=== PATIENT | female | born 1980 | race Caucasian/White ===

== ENCOUNTER 2016-12-17 00:48 | Emergency (ER) | payer MEDICAID ==
[~2016-12-17] VITALS: Ht 165.1 cm; Wt 62.0 kg
[2016-12-17 00:51] VITALS: Ht 165.1 cm; Wt 62.0 kg
--- NOTE | 2016-12-17 01:16 | ERA ---
ER Documentation Chief Complaint Date/Time DATE: 12/17/16 TIME: 01:15 Chief Complaint high blood pressure HPI The patient is a 35-year-old female, presenting to the ER because of high blood pressure. 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 She had her blood pressure taken, it was high. She is under a lot of stress. Therefore she was asked to go to the hospital. She denies any symptoms, denies headache, neck pain, chest pain, abdominal pain, vomiting, dysuria, diarrhea, constipation. She does not smoke or drink Past medical/surgical history: None ROS All systems reviewed and are negative except as per history of present illness. Allergies Allergies: Coded Allergies: No Known Allergy (Unverified , 12/17/16) PMhx/Soc Medical and Surgical Hx: pt denies Medical Hx, pt denies Surgical Hx Hx Alcohol Use: No Hx Substance Use: No Hx Tobacco Use: No Smoking Status: Never smoker Physical Exam Vitals Vital Signs Date Time Temp Pulse Resp B/P Pulse Ox O2 Delivery O2 Flow Rate FiO2 12/17/16 01:30 64 15 131/83 100 Room Air 12/17/16 00:51 98.9 84 17 174/100 100 Physical Exam Const: No acute distress. Head: Atraumatic. Eyes: Normal Conjunctiva. ENT: Normal External Ears, Nose and Mouth. Neck: Full range of motion. No meningismus. Resp: Clear to auscultation bilaterally. Cardio: Regular rate and rhythm, no murmurs. Abd: Soft, non distended, normal bowel sounds, non tender. Skin: No petechiae or rashes. Back: No midline or flank tenderness. Ext: No cyanosis, or edema. Neur: Awake and alert. No focal deficit Psych: Normal Mood and Affect. Procedures/MDM MDM: The patient is a 35-year-old female, presenting with elevated blood pressure. She denies any symptom, he is stable for outpatient follow-up Departure Diagnosis: Primary Impression: Hypertension Condition: Good Comments I discussed the findings with the patient. I advised the patient to follow-up with the primary physician in about 1-2 days to recheck her blood pressure, sooner if needed and return if any concern. SURYA SALAZAR MD Dec 17, 2016 01:16
[2016-12-17 01:30] VITALS: BP 131/83; PULSE 64; RESP 15
== END 2016-12-17 01:54 | disposition home or self-care (01) ==
LOC: E/R 00:48
DX: I10 Essential (primary) hypertension (principal)
CPT/HCPCS: 99282

== ENCOUNTER 2017-11-11 14:00 | Emergency (ER) | END 2017-11-11 14:26 | disposition home or self-care (01) ==

== ENCOUNTER 2018-03-24 00:33 | Emergency (ER) | END 2018-03-24 04:19 | disposition left against medical advice (07) ==

== ENCOUNTER 2018-03-24 09:50 | Emergency (ER) | END 2018-03-24 12:17 | disposition home or self-care (01) ==

== ENCOUNTER 2018-09-04 19:17 | Emergency (ER) | payer OTHER ==
[~2018-09-04] VITALS: Wt 61.4 kg
[~2018-09-04 19:17] MED LIST: BEN25 PO; CLIN300C10 PO; HC30CR25 TOP; IBUP-1542 PO
[2018-09-04 19:19] VITALS: BP 128/77; PULSE 84; RESP 19
[2018-09-04] MEDS ORDERED: KETOROLAC 60 MG INJ IM STA (22:36)
[2018-09-04] MEDS ORDERED: IBUP-1542 PO (23:02)
--- NOTE | 2018-09-05 00:28 | ERD ---
ER Documentation Chief Complaint Chief Complaint bib self, cc: headache x 3 days, HPI 38-year-old female patient with no significant past medical history presents the ED complaining of a headache that started 3 days ago after a head injury. Describes her pain is achy and rates it a 7 out of 10. That she is been taking Excedrin, without relief. Reports her pain is on the frontal region. Patient reports that she was trying to put her laundry up onto the shelf, actually hit her ahead and did not lose consciousness but feels slightly dizzy and with a headache. Denies any fever, chills, nausea, vomiting, diarrhea, neck stiffness. ROS All systems reviewed and are negative except as per history of present illness. Medications Home Meds Active Scripts Ibuprofen* (Motrin*) 600 Mg Tab, 600 MG PO Q6, #30 TAB Prov:THERESA BELTRÁN PA-C 09/04/18 Ibuprofen* (Motrin*) 600 Mg Tab, 600 MG PO Q8 for 5 Days, #15 TAB Prov:ARIEL MORENO MD 03/24/18 Clindamycin Hcl* (Clindamycin Hcl*) 300 Mg Capsule, 300 MG PO TID for 7 Days, CAP Prov:ARIEL MORENO MD 03/24/18 Hydrocortisone* Topical (Hydrocortisone* Topical) 2.5%-28.3 Gm Cream..g., 1 APPLIC TOP BID, #1 TUB Prov:RYAN SPEARS PA-C 11/11/17 Diphenhydramine Hcl* (Benadryl*) 25 Mg Cap, 25 MG PO Q6, #30 CAP Prov:RYAN SPEARS PA-C 11/11/17 Allergies Allergies: Coded Allergies: No Known Allergy (Unverified , 03/24/18) PMhx/Soc Medical and Surgical Hx: pt denies Medical Hx, pt denies Surgical Hx History of Surgery: No Anesthesia Reaction: No Hx Neurological Disorder: No Hx Respiratory Disorders: No Hx Cardiac Disorders: No Hx Psychiatric Problems: No Hx Miscellaneous Medical Probl: No Hx Alcohol Use: No Hx Substance Use: No Hx Tobacco Use: No Smoking Status: Never smoker FmHx Family History: No diabetes, No coronary disease Physical Exam Vitals Vital Signs Date Temp Pulse Resp B/P (MAP) Pulse Ox O2 O2 Flow FiO2 Time Delivery Rate 09/04/18 97.3 84 19 128/77 100 19:19 (94) Physical Exam Const: Pso-tbx-hweuykvwv, well-nourished. In no acute distress. Head: Atraumatic, normocephalic no hematoma. No floyd sign. No raccoon eyes. Eyes: Normal Conjunctiva without injection. No purulent discharge. PERRLA. EOMI ENT: Normal external ear. Ear canal without erythema. Tympanic membrane pearly pineda without effusion or bulging. No hemotympanum. Nasal canal clear with normal turbinates. Moist oropharynx without tonsillar exudates. Non-erythematous pharynx. Uvula midline. No drooling. No trismus. Neck: No cervical midline tenderness. Full range of motion. No meningismus. No cervical lymphadenopathy. No JVD. Resp: Clear to auscultation bilaterally. No wheezing, rhonchi, rales, or crackles. No accessory muscle use. No retractions. Cardio: Regular rate and rhythm. No murmurs, rubs or gallops. Abd: Soft, non tender, non distended. Normal bowel sounds. No palpable masses. No rebound tenderness. No guarding. Negative McBurney's Point. Negative Peacock's Sign. Skin: Normal skin turgor. No petechiae or rashes Back: No midline tenderness. No CVA tenderness. Ext: No cyanosis, or edema. Distal pulses intact bilaterally. Neur: Awake and alert. Normal gait. Normal coordination. Cranial Nerves II- VII intact. Normal finger to nose. Muscle strength 5/5. Sensation intact. Psych: Normal Mood and Affect Results 24 hrs Laboratory Tests Test 09/04/18 21:18 POC Beta HCG, Qualitative NEGATIVE Current Medications Medications Dose Sig/Russel Start Time Status Last (Trade) Ordered Route PRN Stop Time Admin Dose Reason Admin Ketorolac 60 mg ONCE STAT 09/04/18 DC 09/04/18 Tromethamine IM 22:36 09/04/18 23:54 (Toradol) 22:37 Procedures/MDM 38-year-old female patient with no significant past medical history presents to the ED complaining of a headache that started after a head injury. Patient is afebrile and nontoxic-appearing. Patient still has a headache, a CT of the bra in without contrast was ordered to further evaluate patient. She was given Toradol 60 mg IM here in the ED with improvement of her pain. IMPRESSION: 1. No evidence of acute intracranial abnormality. 2. Paranasal sinus opacification as described may reflect sinus infection/inflammation. Patient likely has a forehead contusion. Low suspicion for intracranial bleed, subarachnoid hemorrhage, meningitis, TIA, stroke, subdural hematoma, epidural hematoma, seizures or other emergent conditions. Diagnosis: Head Injury Discharge medications: Ibuprofen Follow up with primary care physician in 1-2 days. Instructed patient to return to the ED sooner for any worsening symptoms. Patient's questions were answered. Patient is hemodynamically stable. Patient understood and agreed with discharge plan. Patient discharged stable. Disclaimer: Inadvertent spelling and grammatical errors are likely due to EHR/dictation software use and do not reflect on the overall quality of patient care. Also, please note that the electronic time recorded on this note does not necessarily reflect the actual time of the patient encounter. Departure Diagnosis: Primary Impression: Head injury Encounter type: initial encounter Qualified Codes: S09.90XA - Unspecified injury of head, initial encounter Condition: Stable Patient Instructions: Headache, Unspecified, HEAD INJURY, No Wake-Up (Adult) Referrals: [facility] YOU HAVE RECEIVED A MEDICAL SCREENING EXAM AND THE RESULTS INDICATE THAT YOU DO NOT HAVE A CONDITION THAT REQUIRES URGENT TREATMENT IN THE EMERGENCY DEPARTMENT. FURTHER EVALUATION AND TREATMENT OF YOUR CONDITION CAN WAIT UNTIL YOU ARE SEEN IN YOUR DOCTORS OFFICE WITHIN THE NEXT 1-2 DAYS. IT IS YOUR RESPONSIBILITY TO MAKE AN APPOINTMENT FOR FOLOW-UP CARE. IF YOU HAVE A PRIMARY DOCTOR --you should call your primary doctor and schedule an appointment IF YOU DO NOT HAVE A PRIMARY DOCTOR YOU CAN CALL OUR PHYSICIAN REFERRAL HOTLINE AT IF YOU CAN NOT AFFORD TO SEE A PHYSICIAN YOU CAN CHOSE FROM THE FOLLOWING [facility] [address] [facility] [address] [facility] [address] [facility] [address] [facility] [address] [facility] [address] [facility]. [facility] YOU HAVE RECEIVED A MEDICAL SCREENING EXAM AND THE RESULTS INDICATE THAT YOU DO NOT HAVE A CONDITION THAT REQUIRES URGENT TREATMENT IN THE EMERGENCY DEPARTMENT. FURTHER EVALUATION AND TREATMENT OF YOUR CONDITION CAN WAIT UNTIL YOU ARE SEEN IN YOUR DOCTORS OFFICE WITHIN THE NEXT 1-2 DAYS. IT IS YOUR RESPONSIBILITY TO MAKE AN APPOINTMENT FOR FOLOW-UP CARE. IF YOU HAVE A PRIMARY DOCTOR --you should call your primary doctor and schedule and appointment IF YOU DO NOT HAVE A PRIMARY DOCTOR YOU CAN CALL OUR PHYSICIAN REFERRAL HOTLINE AT . IF YOU CAN NOT AFFORD TO SEE A PHYSICIAN YOU CAN CHOSE FROM THE FOLLOWING [facility] INSTITUTIONS: [facility] [address] [place] [address] [facility] [address] [place] [address] [facility] [address] [place] [address] [facility] Additional Instructions: Call your primary care doctor TOMORROW for an appointment during the next 2-3 days.See the doctor sooner or return here if your condition worsens before your appointment time. THERESA BELTRÁN PA-C Sep 05, 2018 00:28
== END 2018-09-04 23:59 | disposition home or self-care (01) ==
LOC: FTE 19:17
DX: S09.90XA Unspecified injury of head, initial encounter (principal); R51 Headache; W22.8XXA Striking against or struck by other objects, initial encounter; Y92.9 Unspecified place or not applicable
CPT/HCPCS: 70450; 81025; 96372; J1885; Z7502

== ENCOUNTER 2018-11-21 20:31 | Emergency (ER) | payer OTHER ==
[~2018-11-21] VITALS: Ht 165.1 cm; Wt 63.2 kg
[2018-11-21 21:15] VITALS: BP 131/62; PULSE 71; RESP 18; Ht 165.1 cm; Wt 63.2 kg
--- NOTE | 2018-11-21 23:54 | ERD ---
ER Documentation Chief Complaint Chief Complaint SENT BY CLINIC; 8 WEEKS PREG; NO HEART TONES HPI This is a 38-year-old female, presents ED at roughly 8 weeks for evaluation of no heart tones. Patient states that she was seen at maternity clinic and saw Dr. asher and had an ultrasound performed and no heart tones were seen. Patient is here to get an evaluation. Last menstrual period was roughly October 08, 2018. Patient does not have any complaints at this time. Denies fever, chills, nausea, vomiting, diarrhea, constipation, abdominal pain, pelvic pain, vaginal pain, vaginal discharge, dysuria, hematuria, hematemesis, melena, hematochezia and all other symptoms. No known drug allergies. Immunizations up-to-date. No history of ectopic ROS All systems reviewed and are negative except as per history of present illness. Medications Home Meds Active Scripts Ibuprofen* (Motrin*) 600 Mg Tab, 600 MG PO Q6, #30 TAB Prov:THERESA BELTRÁN PA-C 09/04/18 Ibuprofen* (Motrin*) 600 Mg Tab, 600 MG PO Q8 for 5 Days, #15 TAB Prov:ARIEL MORENO MD 03/24/18 Clindamycin Hcl* (Clindamycin Hcl*) 300 Mg Capsule, 300 MG PO TID for 7 Days, CAP Prov:ARIEL MORENO MD 03/24/18 Hydrocortisone* Topical (Hydrocortisone* Topical) 2.5%-28.3 Gm Cream..g., 1 APPLIC TOP BID, #1 TUB Prov:RYAN SPEARS PA-C 11/11/17 Diphenhydramine Hcl* (Benadryl*) 25 Mg Cap, 25 MG PO Q6, #30 CAP Prov:RYAN SPEARS PA-C 11/11/17 Allergies Allergies: Coded Allergies: No Known Allergy (Unverified , 03/24/18) PMhx/Soc History of Surgery: No Anesthesia Reaction: No Hx Neurological Disorder: No Hx Respiratory Disorders: No Hx Cardiac Disorders: No Hx Psychiatric Problems: No Hx Miscellaneous Medical Probl: No Hx Alcohol Use: No Hx Substance Use: No Hx Tobacco Use: No FmHx Family History: No diabetes Physical Exam Vitals Vital Signs Date Temp Pulse Resp B/P (MAP) Pulse Ox O2 O2 Flow FiO2 Time Delivery Rate 11/21/18 97.7 71 18 131/62 100 21:15 (85) Physical Exam Physical Exam Vitals signs: Reviewed by me. General: Well developed, well nourished, in no acute distress. Patient is awake and alert. Head: Normocephalic, atraumatic. Eyes: Normal conjunctiva, Pupils PERRLA, EOM intact grossly ENT: Pharynx is clear, Moist mucous membranes, external ears, nose and mouth normal Neck: Supple, no masses, lymphadenopathy or JVD Respiratory: Clear to auscultation bilaterally with no wheezing, rhonchi, rales, no distress Cardiovascular: RRR, no murmurs, rubs, or gallops Abdominal: Soft, nondistended, no peritoneal signs, no rigidity, no surgical abdomen, bowel sounds present all 4 quadrants, nontender to light deep palpation all 4 quadrants, no suprapubic tenderness, McBurney's point nontender, Neurologic: Alert and oriented, moving all extremities, normal speech, no focal weakness, no cerebellar signs. Normal mentation Skin: warm and dry, No rash Psych: Normal mood Result Diagram: 11/21/18 2347 11/21/18 2346 Results 24 hrs Laboratory Tests Test 11/21/18 23:46 11/21/18 23:47 Prothrombin Time 12.5 Sec Prothrombin Time Ratio 1.0 INR International Normalized Ratio 0.92 Activated Partial Thromboplast Time 27.6 Sec Sodium Level 140 mmol/L Potassium Level 4.1 mmol/L Chloride Level 103 mmol/L Carbon Dioxide Level 26 mmol/L Anion Gap 11 Blood Urea Nitrogen 12 mg/dl Creatinine 0.57 mg/dl Est Glomerular Filtrat Rate mL/min > 60 mL/min Glucose Level 90 mg/dl Calcium Level 9.6 mg/dl Total Bilirubin 0.1 mg/dl Direct Bilirubin 0.00 mg/dl Indirect Bilirubin 0.1 mg/dl Aspartate Amino Transf (AST/SGOT) 16 IU/L Alanine Aminotransferase (ALT/SGPT) 9 IU/L Alkaline Phosphatase 47 IU/L Total Protein 7.7 g/dl Albumin 4.3 g/dl Globulin 3.40 g/dl Albumin/Globulin Ratio 1.26 Beta HCG, Quantitative 14331.0 mIU/ml White Blood Count 12.3 10^3/ul Red Blood Count 4.69 10^6/ul Hemoglobin 13.3 g/dl Hematocrit 41.0 % Mean Corpuscular Volume 87.4 fl Mean Corpuscular Hemoglobin 28.4 pg Mean Corpuscular Hemoglobin Concent 32.4 g/dl Red Cell Distribution Width 13.8 % Platelet Count 422 10^3/UL Mean Platelet Volume 9.8 fl Immature Granulocytes % 0.600 % Neutrophils % 63.3 % Lymphocytes % 28.1 % Monocytes % 5.5 % Eosinophils % 2.0 % Basophils % 0.5 % Nucleated Red Blood Cells % 0.0 /100WBC Immature Granulocytes # 0.070 10^3/ul Neutrophils # 7.8 10^3/ul Lymphocytes # 3.5 10^3/ul Monocytes # 0.7 10^3/ul Eosinophils # 0.3 10^3/ul Basophils # 0.1 10^3/ul Nucleated Red Blood Cells # 0.0 10^3/ul Urine Color YELLOW Urine Clarity CLOUDY Urine pH 6.0 Urine Specific [place] 1.019 Urine Ketones NEGATIVE mg/dL Urine Nitrite NEGATIVE mg/dL Urine Bilirubin NEGATIVE mg/dL Urine Urobilinogen 1+ mg/dL Urine Leukocyte Esterase 1+ Estrella/ul Urine Microscopic RBC 3 /HPF Urine Microscopic WBC 6 /HPF Urine Squamous Epithelial Cells MODERATE /HPF Urine Bacteria FEW /HPF Urine Mucus FEW /HPF Urine Hemoglobin NEGATIVE mg/dL Urine Glucose NEGATIVE mg/dL Urine Total Protein NEGATIVE mg/dl Urine Test POSITIVE Procedures/MDM EKG, MONITORS, & DIAGNOSTIC IMAGING: [place] [address] Radiology Main Line: [phone] DIAGNOSTIC IMAGING REPORT Patient: YANELI JOEL : 1980 Age: 38 Sex: F MR #: [id number] DOS: 11/22/18 2340 Ordering MD: LETITIA QUINTANILLA PA-C Location: [facility] Room/Bed: PROCEDURE: US OB. CLINICAL INDICATION: , pain. TECHNIQUE: Multiple sonographic images of the pelvis were obtained. Transabdominal views of the pelvis are available for review. The images were reviewed on a PACS workstation. COMPARISON: No prior studies are available for comparison. FINDINGS: There is a single intrauterine . The mean gestational sac diameter measures 2.20 cm, corresponding to a 3-hxfh-5-day . The crown-rump length equals 1.74 cm which corresponds to a 1-mtby-7-day gestational age by ultrasound criteria. cardiac activity could not be identified. No subchorionic hemorrhage is identified. The ovaries are not visualized. The adnexa are unremarkable. There is no free pelvic fluid. IMPRESSION: Single intrauterine gestation of approximately 7 weeks 4 days. cardiac activity could not be identified, suspicious for early failure. Continued follow-up is recommended. RPTAT: HTAR .Fam Meneses MD, MD Date Time Electronically viewed and signed by .Fam Meneses MD, MD on 11/22/2018 01:31 .R/ CC: LETITIA QUINTANILLA PA-C [phone] LAB INTERPRETATION: Interpretation text CBC remarkable for mild leukocytosis of 12.3, no decreased hemoglobin, no decreased hematocrit Chemistry shows no evidence of significant electrolyte abnormalities or renal insufficiency Liver function test shows no evidence of acute biliary or hepatic dysfunction Coagulation study showed no concerning coagulopathy Urinalysis remarkable for 6 microscopic WBCs, 1+ leukocyte esterase, blood type a + hcg [id number] ER COURSE: The patient was stable throughout ED course. I kept the patient and/or family informed of laboratory and diagnostic imaging r esults throughout the emergency room course. The patient was promptly evaluated and a treatment plan was devised based on H&P and other data. This plan was discussed with the patient who agreed and had no further questions or concerns prior to discharge. MEDICAL DECISION MAKING: This is a 38-year-old female who presents ED at roughly 8 weeks concerned about no heart tones. Ultrasound was repeated in the emergency department today and there is a single intrauterine gestation at approximately 7 weeks and 4 days seen but there was no cardiac activity identified and this is very suspicious for an early failure. Patient was given copies of ultrasound findings as well as blood work done in the emergency department. Urinalysis reflects UTI. Will treat patient for UTI. At this time there is no ob/gynecologic emergency. No evidence of intra-abdominal hemorrhage, ovarian torsion, ectopic , tubo-ovarian abscess, sepsis, among others. I discussed with patient at great length that she needs to follow-up with her OB specialist regarding these ultrasound findings and given that she was told earlier today that there was no cardiac activity seen discussed that this could be an early failure and that she may need a D&C but she needs to follow-up with the OB to discuss this. Patient advised to follow-up with her OB specialist in the next 48-72 hours to h to possibly have a repeat ultrasound and repeat blood work. Vitals are stable patient can be managed close outpatient follow-up. Return to ED with any worsening symptoms DISPOSITION PLAN: We discussed follow up with the patient's primary care doctor within 24 to 48 hours. Patient counseled regarding my diagnostic impression and care plan. Prior to discharge all questions answered. Pt agrees with treatment plan and understands strict return precautions. Precautionary instructions provided including instructions to return to the ER if not improving or for any worsening or changing symptoms or concerns. SPECIALIST FOLLOW UP RECOMMENDED: obgyn Patient has been advised to follow up with primary care in 1-2 days. Disclaimer: Inadvertent spelling and grammatical errors are likely due to EHR/dictation software use and do not reflect on the overall quality of patient care. Also, please note that the electronic time recorded on this note does not necessarily reflect the actual time of the patient encounter. Departure Diagnosis: Primary Impression: Threatened in first trimester Additional Impression: UTI (urinary tract infection) in in first trimester Condition: Stable Patient Instructions: Possible Miscarriage (Threatened ), Understanding Urinary Tract Infections (UTIs) Referrals: DELIVERY SPECIALIST REFERRAL LIST Additional Instructions: Follow-up with your OB doctor in the next 48-72 hours to have a possible repeat ultrasound and repeat blood work Can also return to the emergency department for repeat ultrasound and blood work. Patient advised to return to the ED immediately for new or worsening symptoms. Patient advised to follow up with primary care provider in the next 24-48 hours. Patient verbalized understanding and agrees with treatment plan and course of action. If patient has no primary care they may follow up with one of the community cli nics listed on the following page or one of the options listed below [facility] + [address] [address] or [facility] [address] [place] [address] or [facility] [address] [place] [address] LETITIA QUINTANILLA PA-C Nov 21, 2018 23:54
[2018-11-22] MEDS ORDERED: CEPH-443 PO (01:43)
== END 2018-11-22 02:17 | disposition home or self-care (01) ==
LOC: FTE 20:31
DX: O20.0 Threatened abortion (principal); O23.41 Unspecified infection of urinary tract in pregnancy, first trimester; Z3A.01 Less than 8 weeks gestation of pregnancy
CPT/HCPCS: 36415; 76801; 80053; 81001; 84702; 84703; 85025; 85610; 85730; 86900; 86901; 87086; Z7502

== ENCOUNTER 2019-03-20 12:14 | Inpatient (IN) | payer OTHER ==
[~2019-03-20] VITALS: Ht 160 cm; Wt 65.5 kg
[2019-03-20] VITALS (14 sets, daily range): BP systolic 91–127; BP diastolic 60–89; PULSE 71–91; RESP 14–28; Ht 160 cm; Wt 65.5 kg
[~2019-03-20 12:14] MED LIST changes: +CEFAZOLIN 2 GM/50 ML (PMX) 50 ML IVPB ONE; +CEPH-443 PO; +CIPR500T4 PO; +DOXY100T2 PO; +IBUP800T48 PO; +LACTATED RINGER'S 1,000 ML IV SCH; +METR500T PO
[2019-03-20] MEDS ORDERED: CEFAZOLIN 1 GM INJ ONE (14:31)
[2019-03-20] MEDS ORDERED: FENTAnyl 50 MCG/ML VIAL ONE (14:31)
[2019-03-20] MEDS ORDERED: PROPOFOL 20 ML ONE (14:31)
[2019-03-20] MEDS ORDERED: ROCURONIUM 50 MG INJ ONE (14:31)
[2019-03-20] MEDS ORDERED: ROPIVACAINE 0.5 % 30 ML VIAL ONE (14:31)
[2019-03-20] MEDS ORDERED: MIDAZOLAM 1 MG/ML 2 ML INJ ONE (14:31)
--- NOTE | 2019-03-20 14:51 | PREAC ---
Date/Time of Note Date/Time of Note DATE: 03/20/19 TIME: 14:46 Anesthesia Eval and Record Evaluation Time Pre-Procedure Interview DATE: 03/20/19 TIME: 14:46 Age 39 Sex female NPO: 8 hrs Preoperative diagnosis Ovarian Cyst, Patient's request for BTL Planned procedure Laparotomy Ovarian Cystectomy and Bilateral Tubal Ligation Past Medical History Past Medical History: Includes : : (4), Para: (3) Surgery & Anesthesia Issues No known issue Meds Anticoagulation: No Beta Argelia within 24 hr: No Reason Beta Argelia not given: Pt. not on B-Argelia Discontinued Scripts Cephalexin* (Keflex*) 500 Mg Capsule, 500 MG PO BID for 7 Days, CAP Prov:LETITIA QUINTANILLA PA-C 11/22/18 Ibuprofen* (Motrin*) 600 Mg Tab, 600 MG PO Q6, #30 TAB Prov:THERESA BELTRÁN PA-C 09/04/18 Ibuprofen* (Motrin*) 600 Mg Tab, 600 MG PO Q8 for 5 Days, #15 TAB Prov:ARIEL MORENO MD 03/24/18 Clindamycin Hcl* (Clindamycin Hcl*) 300 Mg Capsule, 300 MG PO TID for 7 Days, CAP Prov:ARIEL MORENO MD 03/24/18 Hydrocortisone* Topical (Hydrocortisone* Topical) 2.5%-28.3 Gm Cream..g., 1 APPLIC TOP BID, #1 TUB Prov:RYAN SPEARS PA-C 11/11/17 Diphenhydramine Hcl* (Benadryl*) 25 Mg Cap, 25 MG PO Q6, #30 CAP Prov:RYAN SPEARS PA-C 11/11/17 Current Medications Lactated Ringer's 1,000 ml @ 25 mls/hr Q24H IV ; Start 03/20/19 at 06:00; Stop 03/20/19 at 22:00 Meds reviewed: Yes Allergies Coded Allergies: No Known Allergy (Unverified , 03/20/19) Allergies Reviewed: Yes Labs/Studies Labs Reviewed: Reviewed by anesthesiologist Result Diagram: 03/20/19 1335 Laboratory Tests 03/20/19 13:35 Blood Bank Test 03/20/19 13:35 Antibody Screen NEGATIVE Blood Type A POSITIVE test: Negative Studies: ECG (n/a), CXR (n/a) Pre-procedure Exam Last vitals Vital Signs Date Temp Pulse Resp B/P (MAP) Pulse Ox O2 O2 Flow FiO2 Time Delivery Rate 03/20/19 98.0 71 16 125/89 99 13:27 (101) Airway: Adequate mouth opening, Adequate thyromental dist Mallampati: Mallampati II Teeth: Normal Lung: Normal Heart: Normal ASA Physical Status ASA physical status: 2 Emergency: None Planned Anesthetic General/MAC: ETT Neuraxial: Spinal Nerve block: TAP (bilateral) Planned Pain Management Sub-arachniod narcotics, Single shot nerve block, Parenteral pain med Pre-operative Attestations Prior to commencing anesthesia and surgery, the patient was re-evaluated, there was verification of: *The patient's identity *The results of appropriate recent lab work and preoperative vital signs *The above evaluation not changing prior to induction *Anesthetic plan, risk benefits, alternative and complications discussed with patient/family; questions answered; patient/family understands, accepts and wishes to proceed. JACOB LEUNG MD Mar 20, 2019 14:51
[2019-03-20] MEDS ORDERED: morphine SULFATE/PF (10 MG/10 ML) INJ ONE (15:18)
[2019-03-20] MEDS ORDERED: BUPIVACAINE 0.25%/EPI (SDV) 30 ML INJ ONE (15:42)
[2019-03-20] MEDS ORDERED: DEXAMETHASONE 4 MG/ML 5 ML INJ ONE (15:50)
[2019-03-20] MEDS ORDERED: KETOROLAC 30 MG INJ ONE (15:50)
[2019-03-20] MEDS ORDERED: SUGAMMADEX SODIUM 200 MG/2 ML VIAL IV ONE (15:50)
[2019-03-20] MEDS ORDERED: ONDANSETRON 4 MG INJ ONE (15:50)
[2019-03-20] MEDS ORDERED: METOCLOPRAMIDE 10 MG INJ ONE (15:50)
[2019-03-20] MEDS ORDERED: EPHEDrine 25 MG/5 ML SYG ONE (16:26)
[2019-03-20] MEDS ORDERED: ACETAMINOPHEN 500 MG TAB PO STA ×2 (16:46→18:17)
[2019-03-20] MEDS ORDERED: KETOROLAC 30 MG INJ IV STA (16:46)
[2019-03-20] MEDS: LACTATED RINGER'S 1,000 ML IV SCH (16:46)
[2019-03-20] MEDS ORDERED: EPHEDrine 25 MG/5 ML SYG IV PRN (17:00)
[2019-03-20] MEDS ORDERED: METOCLOPRAMIDE 10 MG INJ IV PRN (17:00)
[2019-03-20] MEDS ORDERED: HYDROCODONE/APAP (5/325) TAB PO PRN (17:00)
[2019-03-20] MEDS ORDERED: LABETALOL HCL 20MG INJ IV PRN (17:00)
[2019-03-20] MEDS ORDERED: AZITHROMYCIN 500MG/NS (PMX) 250 ML IVPB ONE ×2 (17:00→20:00)
[2019-03-20] MEDS ORDERED: morphine 2 MG INJ IV PRN ×2 (17:00)
[2019-03-20] MEDS ORDERED: MEPERIDINE 25 MG INJ IV PRN (17:00)
[2019-03-20] MEDS ORDERED: HYDROmorphONE 1 MG/5 ML IV SYRINGE IV PRN ×2 (17:00)
[2019-03-20] MEDS ORDERED: DIPHENHYDRAMINE 50 MG INJ IV PRN ×2 (17:00)
[2019-03-20] MEDS ORDERED: ONDANSETRON 4 MG INJ IV PRN ×2 (17:00)
[2019-03-20] MEDS ORDERED: NALBUPHINE HCL (10 MG/1 ML) INJ IV PRN (17:00)
[2019-03-20] MEDS ORDERED: ACETAMINOPHEN 500 MG TAB PO PRN (17:00)
[2019-03-20] MEDS ORDERED: KETOROLAC 30 MG INJ IV PRN (17:00)
[2019-03-20] MEDS ORDERED: HYDROmorphONE 0.5 MG/0.5 ML SYG IV PRN ×2 (17:00)
[2019-03-20] MEDS ORDERED: FENTAnyl 50 MCG/ML VIAL IV PRN ×2 (17:00)
[2019-03-20] MEDS ORDERED: NALOXONE (0.4 MG/ML) INJ IV PRN (17:00)
[2019-03-20] MEDS ORDERED: OXYCODONE/ACETAMINOPHEN (5/325) TAB PO PRN (17:00)
--- NOTE | 2019-03-20 17:06 | PAC ---
Date/Time of Note Date/Time of Note DATE: 03/20/19 TIME: 17:05 Post-Anesthesia Notes Post-Anesthesia Note Last documented vital signs Vital Signs Date Temp Pulse Resp B/P (MAP) Pulse Ox O2 O2 Flow FiO2 Time Delivery Rate 03/20/19 98.0 71 16 125/89 99 face mask 17:00 (101) Activity: WNL Respiratory function: WNL Cardiovascular function: WNL Mental status: Baseline Pain reasonably controlled: Yes Hydration appropriate: Yes Nausea/Vomiting absent: Yes JACOB LEUNG MD Mar 20, 2019 17:06
--- NOTE | 2019-03-20 17:12 | HP ---
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 Patient desires sterilization We will proceed with laparotomy ovarian cystectomy and bilateral tubal ligation Result Diagram: 03/20/19 1335 Results 24hrs Laboratory Tests Test 03/20/19 13:35 White Blood Count 8.6 # Red Blood Count 4.72 Hemoglobin 13.4 Hematocrit 40.9 Mean Corpuscular Volume 86.7 Mean Corpuscular Hemoglobin 28.4 L Mean Corpuscular Hemoglobin Concent 32.8 Red Cell Distribution Width 13.4 Platelet Count 361 Mean Platelet Volume 9.8 Immature Granulocytes % 0.300 Neutrophils % 62.0 Lymphocytes % 30.3 Monocytes % 4.7 Eosinophils % 2.1 Basophils % 0.6 Nucleated Red Blood Cells % 0.0 Immature Granulocytes # 0.030 Neutrophils # 5.4 Lymphocytes # 2.6 Monocytes # 0.4 Eosinophils # 0.2 Basophils # 0.1 Nucleated Red Blood Cells # 0.0 Prothrombin Time 13.2 Prothrombin Time Ratio 1.0 INR International Normalized Ratio 0.99 Activated Partial Thromboplast Time 30.5 HPI/ROS Admit Date/Time Admit Date/Time 03/20/2019 Hx of Present Illness 39-year-old female admitted for sterilization Was found to have left-sided cystic teratoma during routine ultrasound ROS Patient does not have major medical complaints Constitutional: no complaints, improved Eyes: no complaints ENT: no complaints Respiratory: no complaints Cardiovascular: no complaints Gastrointestinal: no complaints Genitourinary: no complaints Musculoskeletal: no complaints Skin: no complaints Neurologic: no complaints Endocrine: no complaints Lymphatic: no complaints Psychological: no complaints, nl mood/affect Immunologic: no complaints PMH/Family/Social Past Medical History Medical History: no pertinent history Medications Current Medications Lactated Ringer's 1,000 ml @ 25 mls/hr Q24H IV ; Start 03/20/19 at 06:00; Stop 03/20/19 at 22:00 Hydromorphone HCl (Dilaudid) 0.2 mg PACU PRN IV MILD PAIN 1-3; Start 03/20/19 at 17:00; Status UNV Hydromorphone HCl (Dilaudid) 0.4 mg PACU PRN IV MOD PAIN 4-6; Start 03/20/19 at 17:00; Status UNV Fentanyl (Sublimaze) 25 mcg PACU ORDER PRN IV MILD PAIN 1-3; Start 03/20/19 at 17:00; Status UNV Fentanyl (Sublimaze) 50 mcg PACU ORDER PRN IV MOD PAIN 4-6; Start 03/20/19 at 17:00; Status UNV Oxycodone/ Acetaminophen (Percocet (5/ 325)) 1 tab PACU ORDER PRN PO .PAIN 1-5; Start 03/20/19 at 17:00; Status UNV Ondansetron HCl (Zofran Inj) 4 mg PACU ORDER PRN IV NAUSEA/VOMITING; Start 03/20/19 at 17:00; Status UNV Metoclopramide HCl (Reglan) 10 mg PACU ORDER PRN IV NAUSEA/VOMITING; Start 03/20/19 at 17:00; Status UNV Labetalol HCl (Labetalol) 5 mg PACU ORDER PRN IV HIGH BLOOD PRESSURE; Start 03/20/19 at 17:00; Status UNV Ephedrine Sulfate 5 mg PACU ORDER PRN IV BLOOD PRESSURE SUPPORT; Start 03/20/19 at 17:00; Status UNV Meperidine HCl (Demerol) 25 mg PACU ORDER PRN IV .RIGORS; Start 03/20/19 at 17:00; Status UNV Diphenhydramine HCl (Benadryl) 25 mg PACU ORDER PRN IV .PRURITUS; Start 03/20/19 at 17:00; Status UNV Hydromorphone HCl (Dilaudid) 0.2 mg Q2H PRN IV .PAIN 1-5; Start 03/20/19 at 17:00; Status UNV Hydromorphone HCl (Dilaudid) 0.4 mg Q2H PRN IV .PAIN 6-10; Start 03/20/19 at 1 7:00; Status UNV Morphine Sulfate (morphine) 2 mg Q2H PRN IV .PAIN 1-5; Start 03/20/19 at 17:00; Status UNV Morphine Sulfate (morphine) 4 mg Q2H PRN IV .PAIN 6-10; Start 03/20/19 at 17:00; Status UNV Ketorolac Tromethamine (Toradol) 30 mg Q6H PRN IV .PAIN 6-10; Start 03/20/19 at 17:00; Stop 03/23/19 at 16:59; Status UNV Acetaminophen (Tylenol Tab) 500 mg Q4H PRN PO .PAIN 1-3; Start 03/20/19 at 17:00; Status UNV Acetaminophen/ Hydrocodone Bitart (Jackson (5/325)) 1 tab Q4H PRN PO .PAIN 4-6; Start 03/20/19 at 17:00; Status UNV Diphenhydramine HCl (Benadryl) 25 mg Q4H PRN IV .PRURITUS; Start 03/20/19 at 17:00; Status UNV Nalbuphine HCl (Nubain) 10 mg Q4H PRN IV .PRURITUS; Start 03/20/19 at 17:00; Status UNV Ondansetron HCl (Zofran Inj) 4 mg Q6H PRN IV .NAUSEA/VOMITING; Start 03/20/19 at 17:00; Status UNV Naloxone HCl (Narcan) 0.2 mg Q2M PRN IV .RESP RATE; Start 03/20/19 at 17:00; Status UNV Miscellaneous Information (* Miscellaneous Pharmacy Order) DURAMORPH: 0.1 MG SPI... GIVEN NEURAXIAL XX ; Start 03/20/19 at 17:00; Status UNV Lactated Ringer's 1,000 ml @ 100 mls/hr Q10H IV ; Start 03/20/19 at 16:46; Status UNV Butorphanol Tartrate (Stadol) 2 mg ONCE ONCE IM ; Start 03/20/19 at 17:00; Stop 03/20/19 at 17:01; Status UNV Azithromycin 250 ml @ 250 mls/hr ONCE ONCE IVPB ; Start 03/20/19 at 17:00; Stop 03/20/19 at 17:59; Status UNV Ketorolac Tromethamine (Toradol) 30 mg ONCE STAT IV ; Start 03/20/19 at 16:46; Stop 03/20/19 at 16:47; Status UNV Acetaminophen (Tylenol Tab) 1,000 mg ONCE STAT PO ; Start 03/20/19 at 16:46; Stop 03/20/19 at 16:47; Status UNV Coded Allergies: No Known Allergy (Unverified , 03/20/19) Past Surgical History Past Surgical Hx: no surgical history Family History Significant Family History: no pertinent family hx Social History Smoking Status: Never smoker Drug Use: none Exam/Review of Systems Vital Signs Vitals Vital Signs Date Temp Pulse Resp B/P (MAP) Pulse Ox O2 O2 Flow FiO2 Time Delivery Rate 03/20/19 97.9 17:07 03/20/19 71 16 125/89 99 13:27 (101) Intake and Output 03/19/19 03/19/19 03/20/19 1515:00 23:00 07:00 IntakeIntake Total 0 ml BalanceBalance 0 ml Exam Exam Patient does not seem to be in acute distress Constitutional: alert, oriented, well developed Psych: no complaints, nl mood/affect Head: normocephalic, atraumatic Eyes: nl conjunctiva, EOMI, nl lids, nl sclera, PERRL ENMT: nl external ears & nose, nl lips & teeth, nl nasal mucosa & septum Neck: supple, non-tender Respiratory: clear to auscultation, normal air movement Cardiovascular: regular rate and rhythm, nl pulses Gastrointestinal: soft, nl liver, spleen, non-tender Genitourinary - Male: other (Patient had a left adnexal mass which appeared to be 10 cm) Musculoskeletal: nl extremities to inspection Extremities: normal pulses 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
--- NOTE | 2019-03-20 17:29 | OPR ---
Operative Report Planned Procedure Procedure date Mar 20, 2019 Procedure(s) Laparotomy Left ovarian cystectomy Bilateral tubal ligation Performed by see signature line Anesthesiologist: JACOB LEUNG MD Pre-procedure diagnosis Voluntary sterilization Multiparity Left adnexal mass most probably benign cystic teratoma [id number] Anesthesia Type: [id number] general Post-Procedure Post-procedure diagnosis Status post laparotomy left ovarian cystectomy and bilateral tubal ligation Findings 10 cm x 10 cm left ovarian cyst with sebaceous material inside and also hair that was inside the cyst Normal-appearing right and left fallopian tubes and right ovary Estimated Blood Loss: 0 - 10 mls Specimen(s) Left-sided ovarian cyst Segments of right and left fallopian tubes Grafts/Implant(s) none Complication(s) none Pt Condition post procedure: stable Disposition: PACU Procedure Description The patient was placed on the OR table in supine position. General anesthesia was induced. A Nova catheter was then inserted into urinary bladder under aseptic condition. After induction of spinal anesthesia, with the patient in supine position, abdominal area was prepped and draped for usual laparotomy procedure. Under satisfactory anesthesia, a small incision was placed three 4 fingerbreadth above the symphysis pubis and also paralyzed to symphysis pubis. Incision extended laterally to 4 5 cm lateral to linea nigra on either sides Incision was carried down with sharp and blunt dissection until fascia was reached. Anterior recti muscle fascia was incised in the midportion. Incision extended laterally to the border of the skin incision. Peritoneum was visualized. Avoiding bowel or bladder, incision was made in peritoneum, which was extended superiorly and or inferiorly. After warts right ovary appeared to be normal. Upon observation of the left ovary 10 cm left ovarian cyst was noticed. Left ovary was brought up to operative field. An incision was made on the dependent portion of the left ovary and incision extended laterally to encompass the diameter of the cyst. At this point cyst was inoculated on block with sharp and blunt dissection until the whole cyst was removed. Hemostasis on base of the cyst was secured using Bovie cautery and edge of his cysts were reapproximated by placing Surgicel inside the defect area and ovary. Hemostasis remained secure. Left fallopian tube was raised in the mid portion. A clamp was placed below the fimbriated end, most of the fallopian tube including fimbriated end from the mesosalpinx traversing the isthmus portion of the tube. Another clamp was placed just below the first and 0 Vicryl tie was used to tie the mesosalpinx and the stump of the fallopian tube on the proximal side. Another stitch of the same kind was used for adequate hemostasis. Hemostasis appeared to be secure on ligated sites of the fallopian tube. Tube was incised above the stitched area. Same procedure was done on the fallopian tube on opposite side. Hemostasis appeared to be secure on ligated sites of either fallopian tubes. Right ovary appears normal and uterus appears to be normal size. Announcing needle, lap, sponge and instrument count to be correct, abdomen was closed in layers as follows: Peritoneum with running stitches of 2- 0 Vicryl, fascia edges of #1 Vicryl, subcutaneous tissue with running stitches of 2-0 Monocryl, and skin was reapproximated using subcuticular stitches of 4-0 Monocryl on a PS2 needle and also Dermabond was placed on the incision. The patient tolerated the procedure very well and was transferred to postanesthesia recovery room in stable and good condition. ESTIMATED BLOOD LOSS: Less than 10 mL. SHADI MAYES MD Mar 20, 2019 17:24
[2019-03-20] MEDS ORDERED: BUTORPHANOL 2 MG INJ IM ONE ×2 (17:44→18:30)
[2019-03-20] MEDS ORDERED: LACTATED RINGER'S 1,000 ML IV SCH (18:17)
[2019-03-20] MEDS ORDERED: NA PHOSPHATE/BIPHOS 133 ML ENEMA PR PRN (18:30)
[2019-03-20] MEDS: CLINDAMYCIN 300 MG CAP PO SCH (20:00)
[2019-03-20] MEDS ORDERED: SOD CHLORIDE 0.9% 1,000 ML IV ONE ×2 (20:00)
--- NOTE | 2019-03-20 20:11 | EN ---
Date/Time of Note Date/Time of Note DATE: 03/20/19 TIME: 20:10 Event Note Medicine Medicine Event Note bus driver note approx at 7:45pm TUBE CLEANING OPERATOR called this patient was noted to be hypotensive with systolic in the 70s. Patient seen and examined at the bedside. Patient is status post laparotomy for left ovarian cystectomy and bilateral tubal ligation. Patient is in the Trendelenburg position. She does appear pale and lethargic. She is able to answer questions appropriately. Her skin and her lips do appear pale. Estimated blood loss for the operative record was 10 mL's. She currently does not appear to have any signs of bleeding. Her abdomen is soft and nontender. Normal saline was running and was placed wide open. During the TUBE CLEANING OPERATOR patient's blood pressure was shown to have improvement with systolic in the 90s. General: Patient lying in bed in no acute distress she does appear lethargic and tired but this was improving throughout the TUBE CLEANING OPERATOR CVS: Regular rate rhythm Lungs clear to station bilaterally Abdomen: Soft Neuro: Alert and oriented x3, no focal neurological deficits noted on exam Assessment and plan: 1. Hypotension: Likely secondary to insensible losses during surgery. Will bolus the patient 2 L normal saline and continue current maintenance fluid that have been ordered by the OB doctor. Will check a stat CBC BMP PTT INR type and crossmatch as well. Transfer the patient to telemetry for closer monitoring. Greater than 35 minutes critical care time was spent on the care management this patient. RN has been notified to contact the primary physician JANELL BRYSON Mar 20, 2019 20:11
[2019-03-20] MEDS: CEFAZOLIN 2 GM/50 ML (PMX) 50 ML IVPB SCH (22:00)
[2019-03-20] MEDS: SENNA/DOCUSATE NA (8.6MG/50MG) TAB PO SCH (22:27)
[2019-03-20] MEDS: IBUPROFEN 800 MG TAB PO SCH (22:27)
--- NOTE | 2019-03-21 00:11 | QN ---
Documentation Comment 39-year-old female status post ovarian cystectomy and tubal ligation I was called on the 2029 with patient while quadrant the rapid response team was called for Patient apparently has received 2 L of normal saline Patient had hematocrit of 34 before 2 L of normal saline infusion This service has called for stat ultrasound of abdomen and pelvis for exploration of free fluid inside the abdomen contemplating intra-abdominal bleed Also stat CBC and CMP were ordered At this point the therapy technician is not responding to the nursing supervisor remelt units cannot be contacted or is unavailable We will try to obtain CBC results and if there is a significant drop in hemoglobin hematocrit will start transfusion This service seriously contemplating an exploratory laparotomy for possible source of possible intra-abdominal bleed At this point results of all tests are pending and ordered tests are not done SHADI MAYES MD Mar 21, 2019 00:11
[2019-03-21 00:45] VITALS: BP 93/61; PULSE 90; RESP 20
[2019-03-21] MEDS: CLINDAMYCIN 300 MG CAP PO SCH ×3 (01:00→13:57)
[2019-03-21 04:30] VITALS: BP 96/57; PULSE 81; RESP 20
[2019-03-21] MEDS: CEFAZOLIN 2 GM/50 ML (PMX) 50 ML IVPB SCH ×2 (05:50→13:58)
[2019-03-21] MEDS: IBUPROFEN 800 MG TAB PO SCH ×3 (05:57→21:46)
[2019-03-21 07:30] VITALS: BP 99/55; PULSE 75; RESP 18
[2019-03-21] MEDS ORDERED: BISACODYL 10 MG SUPP PR ONE (10:00)
[2019-03-21] MEDS: SENNA/DOCUSATE NA (8.6MG/50MG) TAB PO SCH ×2 (10:28→20:29)
[2019-03-21] MEDS: LACTATED RINGER'S 1,000 ML IV SCH ×2 (10:33→12:46)
[2019-03-21 11:17] VITALS: BP 105/65; PULSE 77; RESP 18
[2019-03-21 15:30] VITALS: BP 116/71; PULSE 83; RESP 18
[2019-03-21] MEDS: DOXYCYCLINE 100 MG in SOD CHLORIDE 0.9% 250 ML IVPB SCH (15:30)
[2019-03-21] MEDS: CIPROFLOXACIN 400MG/D5W 200 ML IVPB SCH (17:02)
--- NOTE | 2019-03-21 17:04 | PN ---
Date/Time of Note Date/Time of Note DATE: 03/21/19 TIME: 17:00 Assessment/Plan VTE Prophylaxis VTE Prophylaxis Intervention: ambulation Lines/Catheters IV Catheter Type (from Nrs): Peripheral IV Nova in Place (from Nrs): Yes Assessment/Plan Assessment/Plan Status post laparotomy and ovarian cystectomy and tubal ligation Possible intra-abdominal bleeding(Mild all 4 quadrant abdominal ascites) Status post 2 unit packed cell and 1 unit FFP transfusion We will repeat hemoglobin and hematocrit Prophylactic antibiotics were stopped and patient was started on Cipro Vibramycin empirically for possible intra-abdominal infection because of elevated white count We will continue supportive care This service does not anticipate a resection operation for this specific patient Subjective 24 Hr Interval Summary Currently does not have complaint of a pain Claims she wants to go have a bowel movement Constitutional: no complaints, improved, ambulates, BM, flatus, urine output Pain Control: well controlled Exam/Review of Systems Vital Signs Vitals Vital Signs Date Temp Pulse Resp B/P (MAP) Pulse Ox O2 O2 Flow FiO2 Time Delivery Rate 03/21/19 98.4 83 18 116/71 100 Nasal 15:30 (86) Cannula 03/21/19 2.0 08:45 Intake and Output 03/20/19 03/20/19 03/21/19 1414:59 22:59 06:59 IntakeIntake Total 1900 ml 610 ml OutputOutput Total 110 ml 375 ml BalanceBalance 1790 ml 235 ml Exam Free Text/Dictation Patient appears to be resting well without being in any distress Constitutional: alert, oriented, well developed Psych: no complaints, nl mood/affect Head: normocephalic, atraumatic Eyes: nl conjunctiva, EOMI, nl lids, nl sclera ENMT: nl external ears & nose, nl lips & teeth, nl nasal mucosa & septum, mucosa pink and moist Neck: supple, non-tender Respiratory: clear to auscultation, normal air movement Cardiovascular: regular rate and rhythm, nl pulses Gastrointestinal: soft, bowel sounds (Present), surgical scars (Covered), other (Abdomen is nontender soft without any rebound) Musculoskeletal: nl extremities to inspection, nl gait and stance Extremities: normal pulses 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
[2019-03-21] MEDS: metroNIDAZOLE 500 MG/NS (PMX) 100 ML IVPB SCH ×2 (17:10→21:46)
[2019-03-21] MEDS: HYDROCODONE/APAP (5/325) TAB PO PRN ×2 (18:05→18:50)
[2019-03-21] MEDS: ONDANSETRON 4 MG INJ IV PRN (19:53)
[2019-03-21 20:21] VITALS: BP 131/76; PULSE 95; RESP 18
[2019-03-22 00:33] VITALS: BP 108/62; PULSE 88; RESP 20
[2019-03-22] MEDS: LACTATED RINGER'S 1,000 ML IV SCH (02:53)
[2019-03-22] MEDS: DOXYCYCLINE 100 MG in SOD CHLORIDE 0.9% 250 ML IVPB SCH ×2 (03:24→14:34)
[2019-03-22 03:57] VITALS: BP 113/73; PULSE 88; RESP 20
[2019-03-22] MEDS: CIPROFLOXACIN 400MG/D5W 200 ML IVPB SCH (04:22)
[2019-03-22] MEDS: OXYCODONE/ACETAMINOPHEN (5/325) TAB PO PRN ×2 (05:04→20:05)
[2019-03-22] MEDS: IBUPROFEN 800 MG TAB PO SCH ×3 (05:39→20:55)
[2019-03-22] MEDS: metroNIDAZOLE 500 MG/NS (PMX) 100 ML IVPB SCH ×2 (06:07→13:36)
[2019-03-22 07:13] VITALS: BP 120/80; PULSE 88; RESP 18
[2019-03-22] MEDS: ONDANSETRON 4 MG INJ IV PRN (09:41)
[2019-03-22] MEDS: SENNA/DOCUSATE NA (8.6MG/50MG) TAB PO SCH ×2 (09:42→20:55)
[2019-03-22 11:09] VITALS: BP 115/80; PULSE 98; RESP 18
--- NOTE | 2019-03-22 14:45 | PN ---
Date/Time of Note Date/Time of Note DATE: 03/22/19 TIME: 14:43 Assessment/Plan VTE Prophylaxis VTE Prophylaxis Intervention: ambulation Lines/Catheters IV Catheter Type (from Nrs): Peripheral IV Nova in Place (from Nrs): Yes Assessment/Plan Assessment/Plan Continue to observe patient Status post laparotomy ovarian cystectomy and tubal ligation Status post possible intra-abdominal bleeding Currently running stable with stable hemoglobin and hematocrit for 24 hours We will continue to check hemoglobin hematocrit DC IV and IV antibiotics and changed to p.o. antibiotics If patient stays stable will DC patient home following day Subjective 24 Hr Interval Summary Had bowel movement Constitutional: no complaints, improved, ambulates, BM, flatus, urine output Pain Control: well controlled Exam/Review of Systems Vital Signs Vitals Vital Signs Date Temp Pulse Resp B/P (MAP) Pulse Ox O2 O2 Flow FiO2 Time Delivery Rate 03/22/19 98.5 98 18 115/80 100 Nasal 11:09 (92) Cannula 03/22/19 2.0 08:20 Intake and Output 03/21/19 03/21/19 03/22/19 1515:00 23:00 07:00 IntakeIntake Total 600 ml 1490 ml 400 ml OutputOutput Total 2200 ml 3500 ml BalanceBalance 600 ml -710 ml -3100 ml Exam Free Text/Dictation Patient does not seem to be in any acute distress Constitutional: alert, oriented, well developed Psych: no complaints, nl mood/affect Head: normocephalic, atraumatic Eyes: nl conjunctiva, EOMI, nl lids, nl sclera ENMT: nl external ears & nose, nl lips & teeth, nl nasal mucosa & septum, mucosa pink and moist Neck: supple, non-tender Respiratory: clear to auscultation, normal air movement Cardiovascular: regular rate and rhythm, nl pulses Gastrointestinal: soft, nl liver, spleen, non-tender Musculoskeletal: nl extremities to inspection, nl gait and stance Extremities: normal pulses Neurological: 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
[2019-03-22 15:06] VITALS: BP 144/87; PULSE 69; RESP 16
--- NOTE | 2019-03-22 16:24 | PD.PPDC ---
SET UP OPERATOR TOOL Discharge Instruction Provider Information Physician Information 39-year-old female had left ovarian cystectomy and bilateral tubal ligation Postop course was complicated by an episode of hypotension for which she responded to transfusion and IV hydration Patient hemoglobin hematocrit became stable Subsequently was discharged home on the third hospitalization day Diagnosis [id number] Final Diagnosis: [id number] Status post laparotomy, left ovarian cystectomy, bilateral tubal ligation Condition [id number] Patient Condition: Ohota9v Good Diet [id number] Diet: Erhrf0o Resume Regular Diet Activity/Restrictions [id number] Activity: [id number] May Shower [id number] Restrictions: Kcpfu0z No Exercising Nothing in the Vagina Dcrap5Hs Return to Work or School: Rswen2e Apr 30, 2019 Follow-up Follow-up with Physician: 5, Day/Days (In clinic for follow-up) Return to clinic for [id number] TRUCKING SUPERVISOR Instructions: Qiurl5s Fever greater than 101 Chills Worsening abdominal pain Unable to tolerate diet [id number] Surgical Instructions: Xoztg6i Incisional Drainage Incisional Redness SHADI MAYES MD Mar 22, 2019 16:24
--- NOTE | 2019-03-22 16:29 | DS ---
Date/Time of Note Date/Time of Note DATE: 03/22/19 TIME: 16:27 Discharge Summary Admission/Discharge Info Admit Date/Time Mar 20, 2019 at 07:28 Discharge Date/Time March 23, 2019 Discharge Diagnosis Status post laparotomy, ovarian cystectomy, and bilateral tubal ligation Patient Condition: Good Procedures Laparotomy, ovarian cystectomy, bilateral tubal ligation Hx of Present Illness 39-year-old female admitted for sterilization Was found to have left-sided cystic teratoma during routine ultrasound Hospital Course Hospital course was complicated by a episode of hypotension Patient received IV hydration and transfusion Home Meds Active Scripts Ibuprofen* (Motrin*) 800 Mg Tab, 800 MG PO Q8, #60 TAB 0 Refills Prov:SHADI MAYES MD 03/22/19 Metronidazole* (Flagyl*) 500 Mg Tablet, 500 MG PO BID WITH MEALS, #14 TAB 0 Refills Prov:SHADI MAYES MD 03/22/19 Doxycycline* (Vibramycin*) 100 Mg Tab, 100 MG PO BID, #14 TAB 0 Refills Prov:SHADI MAYES MD 03/22/19 Ciprofloxacin Hcl* (Ciprofloxacin Hcl*) 500 Mg Tablet, 500 MG PO BID@,18, #14 TAB 0 Refills Prov:SHADI MAYES MD 03/22/19 Discontinued Scripts Cephalexin* (Keflex*) 500 Mg Capsule, 500 MG PO BID for 7 Days, CAP Prov:LETITIA QUINTANILLA PA-C 11/22/18 Ibuprofen* (Motrin*) 600 Mg Tab, 600 MG PO Q6, #30 TAB Prov:THERESA BELTRÁN PA-C 09/04/18 Ibuprofen* (Motrin*) 600 Mg Tab, 600 MG PO Q8 for 5 Days, #15 TAB Prov:ARIEL MORENO MD 03/24/18 Clindamycin Hcl* (Clindamycin Hcl*) 300 Mg Capsule, 300 MG PO TID for 7 Days, CAP Prov:ARIEL MORENO MD 03/24/18 Hydrocortisone* Topical (Hydrocortisone* Topical) 2.5%-28.3 Gm Cream..g., 1 APPLIC TOP BID, #1 TUB Prov:RYAN SPEARS PA-C 11/11/17 Diphenhydramine Hcl* (Benadryl*) 25 Mg Cap, 25 MG PO Q6, #30 CAP Prov:TORYRYAN PA-C 11/11/17 Follow-up Plan For 5 days in clinic for follow-up Primary Care Provider Not On Staff Doctor Time spent on discharge: > 30 minutes Pending Labs Laboratory Tests Test 03/21/19 21:00 03/22/19 05:30 03/22/19 07:38 White Blood Count 16.1 14.3 10^3/ul (4.8-10.8) 10^3/ul (4.8-10.8) Red Blood Count 3.48 3.59 10^6/ul (4.20-5.40) 10^6/ul (4.20-5.40) Hemoglobin 9.9 10.2 g/dl (12.0-16.0) g/dl (12.0-16.0) Hematocrit 30.3 % (37.0-47.0) 31.7 % (37.0-47.0) Mean Corpuscular 87.1 88.3 Volume fl (82.0-101.0) fl (82.0-101.0) Mean Corpuscular 28.4 pg (29.0-33.0) 28.4 pg (29.0-33.0) Hemoglobin Mean Corpuscular 32.7 32.2 Hemoglobin Concent g/dl (32.0-37.0) g/dl (32.0-37.0) Red Cell 14.2 % (11.5-14.5) 14.1 % (11.5-14.5) Distribution Width Platelet Count 238 247 10^3/UL (140-415) 10^3/UL (140-415) Mean Platelet 9.7 fl (7.4-10.4) 10.1 fl (7.4-10.4) Volume Immature 0.400 0.400 Granulocytes % % (0.001-0.429) % (0.001-0.429) Neutrophils % 81.4 % (39.0-77.0) 74.8 % (39.0-77.0) Lymphocytes % 12.8 % (15.0-51.0) 18.2 % (15.0-51.0) Monocytes % 5.0 % (0.0-11.0) 5.6 % (0.0-11.0) Eosinophils % 0.2 % (0.0-7.0) 0.7 % (0.0-7.0) Basophils % 0.2 % (0.0-2.0) 0.3 % (0.0-2.0) Nucleated Red Blood 0.0 0.0 Cells % /100WBC (0.0-0.0) /100WBC (0.0-0.0) Immature 0.070 0.060 Granulocytes # 10^3/ul (0.0-0.031) 10^3/ul (0.0-0.031) Neutrophils # 13.1 10.7 10^3/ul (1.6-7.5) 10^3/ul (1.6-7.5) Lymphocytes # 2.1 2.6 10^3/ul (0.8-2.9) 10^3/ul (0.8-2.9) Monocytes # 0.8 0.8 10^3/ul (0.3-0.9) 10^3/ul (0.3-0.9) Eosinophils # 0.0 0.1 10^3/ul (0.0-0.5) 10^3/ul (0.0-0.5) Basophils # 0.0 0.0 10^3/ul (0.0-0.1) 10^3/ul (0.0-0.1) Nucleated Red Blood 0.0 0.0 Cells # 10^3/ul (0.0-0.0) 10^3/ul (0.0-0.0) Lab Scanned Report BLOOD TRANSFUSION SHADI MAYES MD Mar 22, 2019 16:29
[2019-03-22] MEDS: metroNIDAZOLE 500 MG TAB PO SCH (17:44)
[2019-03-22] MEDS: CIPROFLOXACIN 500 MG TAB PO SCH (17:44)
[2019-03-22 20:00] VITALS: BP 142/88; PULSE 80; RESP 17
[2019-03-22] MEDS: DOXYCYCLINE 100 MG TAB PO SCH (20:55)
[2019-03-23] VITALS: BP 140/86; PULSE 64; RESP 17
[2019-03-23 04:00] VITALS: BP 118/82; PULSE 72; RESP 18
[2019-03-23] MEDS: IBUPROFEN 800 MG TAB PO SCH ×2 (05:31→14:08)
[2019-03-23] MEDS: CIPROFLOXACIN 500 MG TAB PO SCH ×2 (05:31→17:14)
[2019-03-23 08:05] VITALS: BP 122/77; PULSE 75; RESP 18
[2019-03-23] MEDS: DOXYCYCLINE 100 MG TAB PO SCH (10:00)
[2019-03-23] MEDS: SENNA/DOCUSATE NA (8.6MG/50MG) TAB PO SCH (10:01)
[2019-03-23] MEDS: metroNIDAZOLE 500 MG TAB PO SCH ×2 (10:01→17:14)
[2019-03-23 11:48] VITALS: BP 136/76; PULSE 80; RESP 18
[2019-03-23 15:43] VITALS: BP 128/72; PULSE 82; RESP 19
== END 2019-03-23 18:11 | disposition home or self-care (01) | DRG 742 ==
LOC: SDS 12:14 → REC 17:30 → INTOOBSV 17:30 → SDS 17:30 → OBSVTOIN 17:30 → MS1 18:20 → 6WM 20:20 → OBSVTOIN 03-22 07:28
PROVIDERS: ADMIT Obstetrics & Gynecology; ATTEND Obstetrics & Gynecology
PROC: 0UT70ZZ Resection of Bilateral Fallopian Tubes, Open Approach (ICD-10-PCS; 2019-03-20)
PROC: 0UB10ZZ Excision of Left Ovary, Open Approach (ICD-10-PCS; principal; 2019-03-20 15:00)
PROC: 30233N1 Transfusion of Nonautologous Red Blood Cells into Peripheral Vein, Percutaneous Approach (ICD-10-PCS; 2019-03-21)
PROC: 30233L1 Transfusion of Nonautologous Fresh Plasma into Peripheral Vein, Percutaneous Approach (ICD-10-PCS; 2019-03-21)
PROC: 30233K1 Transfusion of Nonautologous Frozen Plasma into Peripheral Vein, Percutaneous Approach (ICD-10-PCS; 2019-03-21)
DX: D27.1 Benign neoplasm of left ovary (principal); N99.820 Postprocedural hemorrhage of a genitourinary system organ or structure following a genitourinary system procedure; Z30.2 Encounter for sterilization; I95.9 Hypotension, unspecified
CPT/HCPCS: 36430; 76705; 80048; 80053; 85014; 85018; 85025; 85335; 85610; 85730; 86850; 86900; 86901; 86920; 88302; 88305; 99217; G0378; J0456; J0595; J0690; J0744; J1100; J1885; J2250; J2274; J2405; J2765; J2795; J3010; J7030; J7050; J7120; P9016; P9059